=== PATIENT | male | born 1960 | race Caucasian/White ===

== ENCOUNTER 2021-04-22 20:20 | Emergency (ER) | payer OTHER ==
[~2021-04-22] VITALS: Ht 172.7 cm; Wt 75.9 kg
[2021-04-22 20:59] LABS: BASO # 0.1 x10^3/uL (0.0-0.2); BASO % 1 % (0-3); EOS # 0.1 x10^3/uL (0.0-0.7); EOS % 2 % (0-3); HEMATOCRIT 47.4 % (39.0-53.0); LYMPH # 1.2 x10^3/uL (1.0-4.8); LYMPH % 16 % (24-48); MEAN CORPUSCULAR HEMOGLOBIN 30 pg (25-35); MEAN CORPUSCULAR HGB CONC 34 g/dL (31-37); MEAN CORPUSCULAR VOLUME 88 fL (79-100); MONO # 0.6 x10^3/uL (0.0-1.1); MONO % 9 % (0-9); NEUT # 5.1 x10^3uL (1.8-7.7); NEUT % 72 % (31-73); PLATELET COUNT 273 x10^3/uL (140-400); RED BLOOD COUNT 5.39 x10^6/uL (4.30-5.70); RED CELL DISTRIBUTION WIDTH 14.1 % (11.5-14.5); WHITE BLOOD COUNT 7.2 x10^3/uL (4.0-11.0)
[2021-04-22] MEDS ORDERED: IOHEXOL 350 MG/ML 100 ML VIAL. IV ONE (21:00)
--- NOTE | 2021-04-22 21:01 | RAD ---
CT Head W/O Contrast: History: Reason: L arm weakness, hx SC / Spl. Instructions: / History: Not a Stroke Protocol Comparison: none Axial images were obtained without contrast. The kim and white matter appears normal and symmetrical for the patients age. There is no mass effe ct, extraaxial fluid collections or hydrocephalus. There is no gross bleed. There is no focal loss of kim-white matter distinction to suggest acute ischemia, i.e. stroke. Impression: No acute findings. RS Compliance Statement: One or more of the following individualized dose reduction techniques were utilized for this examinat ion: 1. Automated exposure control 2. Adjustment of the mA and/or kV according to patient size 3. Use of iterative reconstruction technique Electronically signed by: Oscar Tate III, MD (04/22/2021 8:58 PM) [facility]
--- NOTE | 2021-04-22 21:05 | RAD ---
XR CHEST 1V Clinical History: Reason: L side weakness, hx CO / Spl. Instructions: / History: Technique: AP view of the chest was obtained at 04/22/2021 8:43 PM. Comparison: July 10, 2016. Findings: The cardiomediastinal silhouette is normal. The pulmonary vasculature is normal. There are median izabela rnotomy wires again seen. Granuloma on the right were seen previously. Impression: No evidence of an acute cardiopulmonary process. Electronically signed by: Oscar Tate III, MD (04/22/2021 9:03 PM) [facility]
[2021-04-22 21:06] LABS: CALCIUM 8.6 mg/dL (8.5-10.1); CREATININE 1.2 mg/dL (0.7-1.3); GFR 61.3; POTASSIUM 3.8 mmol/L (3.5-5.1)
--- NOTE | 2021-04-22 21:06 | PHYS DOC ---
Past History Past Medical History: SD Past Surgical History: Other Additional Past Surgical Histo: hernia Alcohol Use: None Drug Use: None General Adult EDM: Chief Complaint: WEAKNESS/GENERALIZED HPI: HPI: Patient is a 60 year old male with history of prior SD and hypertension who presents with left-sided arm weakness that began at 1100 this morning. Patient denies any pain or paresthesias, however his left arm has felt weak since he woke up this morning. 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 Patient reports similar weakness during his prior MIs, however he had pain then, which she does not have now. Patient reports a family history in his mother, father, brother of strokes. He reports he has never been a smoker. Patient has elevated blood pressure, but does not take any medications for it. He denies any trauma or injury to his left upper extremity. Review of Systems: Review of Systems: Constitutional: Denies fever or chills Eyes: Denies change in visual acuity or visual field deficits HENT: Denies nasal congestion or sore throat Respiratory: Denies cough or shortness of breath Cardiovascular: Denies chest pain or edema GI: Denies abdominal pain, nausea, vomiting, bloody stools or diarrhea : Denies dysuria or hematuria Musculoskeletal: Denies back pain or joint pain Integument: Denies rash or other skin lesions Neurologic: See HPI Allergies: Allergies: Allergies Coded Allergies Type Severity Reaction Last Updated Verified Sulfa (Sulfonamide Antibiotics) Allergy Unknown 06/16/16 Yes Physical Exam: PE: Constitutional: Well developed, well nourished, no acute distress, non-toxic appearance. HENT: Normocephalic, atraumatic, bilateral external ears normal, oropharynx moist, no oral exudates, nose without deformity or discharge. Eyes: PERRLA, EOMI, conjunctiva normal, no discharge. Neck: Normal range of motion, no step-off, no tenderness, supple, no stridor. Cardiovascular: Heart rate regular rhythm, no murmur. Lungs & Thorax: Bilateral breath sounds clear to auscultation. Skin: Warm, dry, no erythema, no rash. Back: No step-off, no tenderness. Extremities: No tenderness, no cyanosis, no clubbing, ROM intact, no edema. Neurologic: Alert and oriented x4. Left upper extremity chief writer strength, elbow fle xion/extension 4/5 compared to 5/5 on the right. Sensory function grossly intact, negative Tinel's sign, negative Phalen sign. Current Patient Data: Labs: Laboratory Tests Test 04/22/21 20:12 04/22/21 20:42 Prothrombin Time 10.4 SEC (9.4-11.4) Prothromb Time International Ratio 1.0 (0.9-1.1) Activated Partial Thromboplast Time 30 SEC (23-33) D-Dimer (Renuka) 0.72 mg/L (0.00-0.50) White Blood Count 7.2 x10^3/uL (4.0-11.0) Red Blood Count 5.39 x10^6/uL (4.30-5.70) Hemoglobin 16.0 g/dL (13.0-17.5) Hematocrit 47.4 % (39.0-53.0) Mean Corpuscular Volume 88 fL (79-100) Mean Corpuscular Hemoglobin 30 pg (25-35) Mean Corpuscular Hemoglobin Concent 34 g/dL (31-37) Red Cell Distribution Width 14.1 % (11.5-14.5) Platelet Count 273 x10^3/uL (140-400) Neutrophils (%) (Auto) 72 % (31-73) Lymphocytes (%) (Auto) 16 % (24-48) Monocytes (%) (Auto) 9 % (0-9) Eosinophils (%) (Auto) 2 % (0-3) Basophils (%) (Auto) 1 % (0-3) Neutrophils # (Auto) 5.1 x10^3uL (1.8-7.7) Lymphocytes # (Auto) 1.2 x10^3/uL (1.0-4.8) Monocytes # (Auto) 0.6 x10^3/uL (0.0-1.1) Eosinophils # (Auto) 0.1 x10^3/uL (0.0-0.7) Basophils # (Auto) 0.1 x10^3/uL (0.0-0.2) Sodium Level 140 mmol/L (136-145) Potassium Level 3.8 mmol/L (3.5-5.1) Chloride Level 104 mmol/L (98-107) Carbon Dioxide Level 25 mmol/L (21-32) Anion Gap 11 (6-14) Blood Urea Nitrogen 23 mg/dL (8-26) Creatinine 1.2 mg/dL (0.7-1.3) Estimated GFR (Cockcroft-Gault) 61.3 BUN/Creatinine Ratio 19 (6-20) Glucose Level 121 mg/dL (70-99) Calcium Level 8.6 mg/dL (8.5-10.1) Total Bilirubin 0.2 mg/dL (0.2-1.0) Aspartate Amino Transf (AST/SGOT) 21 U/L (15-37) Alanine Aminotransferase (ALT/SGPT) 28 U/L (16-63) Alkaline Phosphatase 61 U/L (46-116) Troponin I High Sensitivity 13 ng/L (4-75) Total Protein 7.7 g/dL (6.4-8.2) Albumin 3.9 g/dL (3.4-5.0) Albumin/Globulin Ratio 1.0 (1.0-1.7) Vital Signs: Vital Signs Date Time Temp Pulse Resp B/P (MAP) Pulse Ox O2 Delivery O2 Flow Rate FiO2 04/22/21 22:09 87 16 160/99 (119) 97 Room Air 04/22/21 21:33 87 16 171/100 (123) 97 Room Air 04/22/21 20:26 98.4 100 16 171/106 (127) 97 Room Air EKG: EKG: EKG Interpreted by Dr. Ramos at 2037: Regular rate and rhythm 93 bpm with no ectopic beats. QT 368 ms /QTc 460 ms. No STEMI. Radiology/Procedures: Radiology/Procedures: PROCEDURE: CT HEAD WO CONTRAST CT Head W/O Contrast: History: Reason: L arm weakness, hx SD / Spl. Instructions: / History: Not a Stroke Protocol Comparison: none Axial images were obtained without contrast. The kim and white matter appears normal and symmetrical for the patients age. There is no mass effect, extraaxial fluid collections or hydrocephalus. There is no gross bleed. There is no focal loss of kim-white matter distinction to suggest acute ischemia, i.e. stroke. Impression: No acute findings. PQRS Compliance Statement: One or more of the following individualized dose reduction techniques were utilized for this examination: 1. Automated exposure control 2. Adjustment of the mA and/or kV according to patient size 3. Use of iterative reconstruction technique Electronically signed by: Oscar Tate III, MD (04/22/2021 8:58 PM) [facility] Heart Score: C/O Chest Pain: No Course & Med Decision Making: Course & Med Decision Making Pertinent Labs and Imaging studies reviewed. (See chart for details) 60-year-old male presents with left upper extremity weakness that began at 1100 this morning. Patient has had no change in symptoms since starting. Work-up today will include CT head, labs including coag studies. Age-adjusted D-dimer is 0.62. D-dimer elevated at 0.72. With current neuro symptoms and elevated dimer, hospitalist will be called regarding admission. There is not currently any ultrasound staff here, so we will discuss imaging studies going forward with hospitalist.\ Dr. Edgar Carbone does not accept patient for admission and further imaging studies in the morning. He recommends patient follow-up with his primary care provider, Dr. Monge, to see her soon as possible for outpatient management. I explained work-up findings with patient and his family member at bedside. Patient states his symptoms have not gotten worse, and that he does feel that his strength is improved since resting. I also informed him that the hospitalist here is familiar with his primary care provider, and recommends they follow with her for further evaluation and care. He reports he normally takes Toprol 25 mg, but has been out for some time. Provided prescription for 30-day supply as well as initiated Eliquis for elevated D-dimer. Placed a call to Dr. Monge. Discussed the patient's case with her. She is agreeable to refill of metoprolol as well as initiation of Eliquis treatment. She will see him this week. She requested an ESR and Covid swab to be performed. Patient and his family member understand and are agreeable to discharge plan. Dragon Disclaimer: Rachell Disclaimer: This electronic medical record was generated, in whole or in part, using a voice recognition dictation system. Departure Departure: Impression: Primary Impression: Elevated d-dimer Additional Impressions: Left arm weakness Elevated blood pressure reading Disposition: HOME / SELF CARE / HOMELESS Condition: STABLE Referrals: YANIQUE MONGE MD (PCP) Patient Instructions: D-Dimer Test Additional Instructions: As discussed, your work-up today did not reveal any sign of stroke or cardiac pathology. The only test that came back abnormal was a test called a D-dimer. For your age, a normal D-dimer value would be 0.62. Your value was 0.72. You should call Dr. Monge's office first thing in the morning and request an appointment as soon as possible. You were provided with your first dose of Eliquis here in the emergency department. For the next 6 days, you should take 2 tablets. After that, take 1 tablet. I also prescribed you a 1 month supply of your Toprol prescription. Return to the emergency department for worsening symptoms, new symptoms. These include shortness of breath, cough, chest pain, palpitations, arm swelling, further weakness. Scripts Apixaban (ELIQUIS) 5 Mg Tablet 5 MG PO UD for ddimer high, #35 TAB Take 2 tablets by mouth each day for 7 days. Beginning on day 8, take 1 tablet by mouth. Prov: GARY ENCARNACION 04/22/21 Metoprolol Succinate (TOPROL XL) 25 Mg Tab.er.24h 1 TAB PO DAILY for htn for 30 Days, #30 TAB 0 Refills Prov: GARY ENCARNACION 04/22/21 GARY ENCARNACION Apr 22, 2021 21:06
[2021-04-22 21:12] LABS: ALBUMIN 3.9 g/dL (3.4-5.0); TOTAL BILIRUBIN 0.2 mg/dL (0.2-1.0); TOTAL PROTEIN 7.7 g/dL (6.4-8.2)
--- NOTE | 2021-04-22 21:42 | EKG ---
[address] [address] Test Date: 2021-04-22 Test Time: 20:38:05 Pat Name: NORA WARE Department: Room: Gender: M Account Service Associate: LISETH : 1960 Requested By: GARY ENCARNACION Order Number: [id number] Reading MD: Amando Bhatia Measurements Intervals Orange Rate: 93 P: 44 OR: 166 QRS: 49 QRSD: 94 T: 57 QT: 368 QTc: 460 Interpretive Statements SINUS RHYTHM NORMAL ECG RI6.02 Compared to ECG 06/16/2016 21:49:04 No significant changes Electronically Signed On 04-25-2021 16:21:48 CLINICAL RESEARCH SPEC by Amando Bhatia
--- NOTE | 2021-04-22 21:52 | RAD ---
CTA head and CTA neck with contrast History: Left arm weakness Technique: Axial helical images were obtained of the head and neck after the intravenous administrati on of 75 mL of Isovue-370 IV contrast. Multiplanar reconstruction was performed on an independent wo rk station including MIP imaging and 3D angiographic imaging. Comparison: none CTA head with contrast. Findings: Brain: The kim and white matter appears symmetrical. There is no mass effect, extra-axial fluid co llections or hydrocephalus. There is no gross bleed. Distal carotid arteries: normal caliber Vertebral basilar system normal Major cerebral arteries: normal Impression: no acute findings end impression CTA neck with contrast: Findings: Aortic arch and origin of great vessels: normal Common carotid arteries: Right: normal Left: normal Internal carotid arteries: Right: normal Left: normal Vertebral basilar system normal Impression: No significant stenosis. IMPRESSION: These results were called to the Emergency Department and verified by read back at the time of dictat ion. PQRS Compliance Statement - Stenosis calculations for CT, MR and conventional angiography are based u rut measurement of the distal ICA diameter in accordance with the NASCET methodology. Stenosis calcu lations for carotid ultrasound studies are derived from validated velocity criteria which are known t o correlate with the NASCET methodology. PQRS Compliance Statement: One or more of the following individualized dose reduction techniques were utilized for this examinat ion: 1. Automated exposure control 2. Adjustment of the mA and/or kV according to patient size 3. Use of iterative reconstruction technique Electronically signed by: Oscar Tate III, MD (04/22/2021 9:49 PM) [facility]
[2021-04-22] MEDS ORDERED: METO25TA2 PO (22:44)
[2021-04-22] MEDS ORDERED: APIX5TAB3 PO ×2 (22:44→22:46)
[2021-04-22] MEDS ORDERED: METOPROLOL SUCC 24HR ER 25 MG TAB.ER.24H. PO ONE (22:45)
[2021-04-22] MEDS ORDERED: APIXABAN 5 MG TABLET. PO ONE (22:45)
[2021-04-22 23:11] VITALS: BP 189/119
== END 2021-04-22 23:21 | disposition home or self-care (01) ==
LOC: ER 20:20
DX: R79.1 Abnormal coagulation profile (principal); R53.1 Weakness; I10 Essential (primary) hypertension; I25.2 Old myocardial infarction; Z20.822 Contact with and (suspected) exposure to COVID-19; Z88.2 Allergy status to sulfonamides
CPT/HCPCS: 36415; 70450; 70496; 70498; 71045; 80053; 84484; 85025; 85379; 85610; 85651; 85730; 93005; 99285; C9803; Q9967; U0003